=== PATIENT | female | born 1940 | race Hispanic/Latino ===

== ENCOUNTER 2017-11-16 09:28 | Outpatient (CLI) | payer MEDICARE ==
--- NOTE | 2017-11-17 14:25 | Magnetic Resonance Report ---
MRI BRAIN WITHOUT AND WITH CONTRAST: 11/16/17 09:41:00 CLINICAL: Meningioma COMPARISON: 12/08/13 TECHNIQUE: Axial diffusion, T1, FLAIR, gradient echo T2*, and coronal and axial T2 and sagittal T1 plus coronal and axial postcontrast T1 sequences on a 1.5 Didi magnet. 15.0 cc of Multihance was injected intravenously for the contrast portion of the exam. Consent was obtained prior to the administration of contrast. FINDINGS: The vessels in sulci are normal for age. Stable bilateral frontal lobe postsurgical encephalomalacia with mild bilateral ex-vacuo dilatation of the frontal horns. No mass or enhancing lesion. No restricted diffusion. Extensive bilateral multifocal hypointensities on the gradient echo sequence are unchanged compared to previous exams. No hemorrhage, edema or extra-axial collection. Normal pituitary and optic chiasm. The brainstem and cerebellum are normal. Intact vascular flow voids. The orbits, sinuses and soft tissues are normal. Normal calvarium and skull base. IMPRESSION: Stable postsurgical changes and no acute change.
== END 2017-11-16 09:29 | disposition home or self-care (01) ==
LOC: MRI 09:28
PROVIDERS: ATTEND Neurological Surgery
DX: D32.9 Benign neoplasm of meninges, unspecified (principal); I10 Essential (primary) hypertension
CPT/HCPCS: 36415; 70553; 82565; 84520; A9577